=== PATIENT | female | born 1985 | race Hispanic/Latino ===

== ENCOUNTER 2024-09-03 18:40 | Emergency (ER) | payer SELFPAY ==
[~2024-09-03] VITALS: Ht 154.9 cm; Wt 57.7 kg
[2024-09-03] MEDS: ASPIRIN 325 MG TAB PO ONE (19:38)
[2024-09-03] MEDS: ONDANSETRON HCL INJ 2MG/ML 2ML 2 MG/ML VIAL IV STA (19:38)
[2024-09-03] MEDS: Morphine 4mg INJECTION 4 MG/ML INJ IV ONE (19:38)
[2024-09-03] MEDS: SODIUM CHLORIDE 0.9% 1000ML 1,000 ML IV ONE (19:39)
[2024-09-03 20:41] VITALS: PULSE 90; RESP 16; TEMP 98.2
[2024-09-03 20:46] VITALS: BP 122/89; PULSE 90; RESP 16; TEMP 98.2; O2SAT 100
== END 2024-09-03 20:49 | disposition home or self-care (01) ==
LOC: FSED 19:04
DX: R07.89 Other chest pain (principal); R42 Dizziness and giddiness; R11.2 Nausea with vomiting, unspecified; Z11.52 Encounter for screening for COVID-19; Z85.41 Personal history of malignant neoplasm of cervix uteri
CPT/HCPCS: 0223U; 71046; 80053; 80076; 81003; 81025; 83518 ×2; 83880; 84484; 85025; 85379; 87400; 93005; 99284; J2270; J2405; J7030